=== PATIENT | female | born 1950 | race Caucasian/White ===

== ENCOUNTER 2022-11-27 08:07 | Inpatient (IN) | payer OTHER, MEDICAID ==
[~2022-11-27] VITALS: Ht 147.3 cm; Wt 149.3 kg
[~2022-11-27 08:07] MED LIST: ALPR0.254 PO; AMLO1TAB23 PO; CALC500T53 PO; CHOL20004 PO; DENO60SO SC; ESCI1TAB36 PO; GABA-1250 PO; METO-6 PO; PANT40TA2 PO; RIVA20TA PO
[2022-11-27] MEDS ORDERED: ceFAZolin 1GM/50ML 100 ML IV ONE (08:48)
[2022-11-27] MEDS ORDERED: fentaNYL CITRATE 100 MCG/2 ML VL ONE ×2 (11:23→12:10)
[2022-11-27] MEDS ORDERED: MIDAZOLAM HCL 2MG/2ML 2ml VIAL (1mg/ml) ONE (11:23)
[2022-11-27] MEDS ORDERED: HYDROmorphone HCL 2 MG/ML VL/or syr ONE (11:23)
[2022-11-27] MEDS ORDERED: DexAMETHasone SOD PHOS 10MG/1ML VIAL INJ IV ONE (11:30)
[2022-11-27] MEDS ORDERED: ONDANSETRON HCL 4 MG/2 ML VIAL IV ONE (11:30)
[2022-11-27] MEDS ORDERED: PHENYLEPHRINE HCL 10 MG/ML VL IV ONE (11:30)
[2022-11-27] MEDS ORDERED: PROPOFOL 10 MG/ML 20 ML IV ONE (12:27)
[2022-11-27] MEDS ORDERED: CYCLOBENZAPRINE HCL 10 MG TAB PO ONE ×2 (14:26→16:26)
[2022-11-27] MEDS ORDERED: HYDROmorphone HCL 2 MG/ML VL/or syr IV ONE ×6 (14:27→17:03)
[2022-11-27] MEDS ORDERED: ePHEDrine SULFATE 50 MG/ML AMP IV PRN (14:45)
[2022-11-27] MEDS ORDERED: HYDROmorphone HCL 2 MG/ML VL/or syr IV PRN (14:45)
[2022-11-27] MEDS ORDERED: LABETALOL HCL 5 MG/ML 4ML SYRINGE IV PRN (14:45)
[2022-11-27] MEDS ORDERED: ONDANSETRON HCL 4 MG/2 ML VIAL IV PRN ×2 (14:45→15:45)
[2022-11-27] MEDS ORDERED: MIDAZOLAM HCL 2MG/2ML 2ml VIAL (1mg/ml) IV PRN (14:45)
[2022-11-27] MEDS ORDERED: MORPHINE SULFATE 4 MG/ML SYR/VIAL IV PRN (14:45)
[2022-11-27] MEDS ORDERED: MORPHINE SULFATE INJ 2 MG/ml SYRG IV PRN ×2 (15:45)
[2022-11-27] MEDS ORDERED: MILK OF MAGNESIA 30ML SUSP PO PRN (15:45)
[2022-11-27] MEDS ORDERED: DOCUSATE SOD 100 MG CAP PO PRN (15:45)
[2022-11-27] MEDS ORDERED: ACETAMINOPHEN 325 MG TAB PO PRN (15:45)
[2022-11-27] MEDS ORDERED: ceFAZolin 1GM/50ML 50 ML IV SCH (15:45)
[2022-11-27] MEDS ORDERED: NITROGLYCERIN 0.4 MG SL TAB SL PRN (15:45)
[2022-11-27 15:55] VITALS: PULSE 86; RESP 17; O2SAT 98
[2022-11-27 18:25] VITALS: BP 115/51; PULSE 85; RESP 17; TEMP 97.9; O2SAT 92
[2022-11-27] MEDS: MORPHINE SULFATE 4 MG/ML SYR/VIAL IV PRN (18:42)
[2022-11-27] MEDS: D5W/SOD CHLO 0.9% 1,000 ML IV SCH ×2 (18:42→21:22)
[2022-11-27 20:00] VITALS: BP 149/86; PULSE 73; PULSE 74; PULSE 85; RESP 18; TEMP 97.9; O2SAT 98
[2022-11-27] MEDS: ceFAZolin 1GM/50ML 50 ML IV SCH (21:20)
[2022-11-27] MEDS: CYCLOBENZAPRINE HCL 10 MG TAB PO SCH (21:20)
[2022-11-27] MEDS: DOCUSATE SOD 100 MG CAP PO SCH (21:21)
[2022-11-27] MEDS: HYDROcodone-ACET 10/325MG TAB PO PRN (21:21)
[2022-11-27 22:00] VITALS: BP 110/56; PULSE 73; RESP 18; TEMP 98.6; O2SAT 98
[2022-11-28] VITALS (7 sets, daily range): BP systolic 95–159; BP diastolic 51–76; PULSE 65–88; RESP 16–18; TEMP 97.7–98.5; O2SAT 0–100
[2022-11-28] MEDS: MORPHINE SULFATE 4 MG/ML SYR/VIAL IV PRN ×5 (01:21→21:09)
[2022-11-28] MEDS: ceFAZolin 1GM/50ML 50 ML IV SCH (04:26)
[2022-11-28] MEDS: HYDROcodone-ACET 10/325MG TAB PO PRN (04:27)
[2022-11-28] MEDS ORDERED: HYDROmorphone HCL 2 MG/ML VL/or syr IV ONE (05:15)
[2022-11-28] MEDS: CYCLOBENZAPRINE HCL 10 MG TAB PO SCH ×3 (05:22→21:06)
[2022-11-28] MEDS: D5W/SOD CHLO 0.9% 1,000 ML IV SCH (05:57)
[2022-11-28] MEDS: DOCUSATE SOD 100 MG CAP PO SCH ×2 (09:50→21:06)
[2022-11-29] VITALS (9 sets, daily range): BP systolic 122–189; BP diastolic 63–95; PULSE 65–135; RESP 14–24; TEMP 98.2–99; O2SAT 95–98
[2022-11-29] MEDS: HYDROcodone-ACET 10/325MG TAB PO PRN ×4 (02:13→20:50)
[2022-11-29] MEDS: D5W/SOD CHLO 0.9% 1,000 ML IV SCH ×4 (02:39→20:22)
[2022-11-29] MEDS: MORPHINE SULFATE 4 MG/ML SYR/VIAL IV PRN ×2 (04:28→08:33)
[2022-11-29] MEDS: CYCLOBENZAPRINE HCL 10 MG TAB PO SCH ×3 (05:46→22:00)
[2022-11-29] MEDS: DOCUSATE SOD 100 MG CAP PO SCH ×2 (08:27→22:00)
[2022-11-29 12:37] LABS: Hepatitis C Antibody Negative (Negative)
[2022-11-29] MEDS ORDERED: AMIODARONE BOLUS KIT 100 ML IV ONE (14:00)
[2022-11-29] MEDS ORDERED: AMIODARONE 450mg/250ml AE 250 ML IV SCH ×2 (14:15→20:15)
[2022-11-29] MEDS ORDERED: amLODIPine BESYLATE 5 MG TAB PO ONE (15:00)
[2022-11-29] MEDS ORDERED: METOPROLOL SUCCINATE XL 50 MG TAB PO ONE (15:00)
[2022-11-29] MEDS ORDERED: ALPRAZolam 0.25 MG TAB PO ONE (15:00)
[2022-11-29] MEDS ORDERED: dilTIAZem 25 MG/5 ML VIAL IV ONE (16:30)
[2022-11-29] MEDS ORDERED: hydrALAZINE HCL 20 MG/ML VL IV PRN (16:45)
[2022-11-29] MEDS ORDERED: ALPRAZolam 0.25 MG TAB PO PRN (17:15)
[2022-11-29 17:45] LABS: Basophils # (auto) 0 10 ^3/uL (0-0.2); Basophils % (auto) 0.4 % (0.0-2.0); Eosinophils # (auto) 0 10 ^3/uL (0-0.8); Hemoglobin 10.7 g/dL (12.2-16.2); Lymphocytes % (auto) 8.8 % (10.0-50.0); Neutrophils # (auto) 7.5 10 ^3/uL (1.6-8.6)
[2022-11-29 17:47] LABS: Eosinophils % (auto) 0.1 % (0.0-7.0); Hematocrit 30.7 % (36.0-46.0); Lymphocytes # (auto) 0.8 10 ^3/uL (0.4-5.4); Mean Corpuscular Hemoglobin 36.1 pg (28.0-32.0); Mean Corpuscular Hgb Conc. 34.7 g/dL (32.0-36.0); Mean Corpuscular Volume 104.1 fL (80.0-100.0); Monocytes # (auto) 1.1 10 ^3/uL (0-1.3); Monocytes % (auto) 11.9 % (0.0-12.0); Neutrophils % (auto) 78.8 % (37.0-80.0); Red Blood Cells 2.95 10^6/uL (4.0-5.20); Red Cell Distribution Width 14.6 % (11.8-14.3); White Blood Cell 9.6 10^3/uL (4.4-10.8)
[2022-11-29] MEDS: RIVAROXABAN 20 MG TAB PO SCH (18:00)
[2022-11-29 18:07] LABS: Albumin 2.8 g/dL (3.4-5.0); BUN/Creatinine Ratio 13.6 (10.0-20.0); Calcium 8.2 mg/dL (8.5-10.1); Magnesium 1.5 mg/dL (1.6-2.6); Potassium 3.6 mmol/L (3.5-5.1)
[2022-11-29 18:11] LABS: Bilirubin, Total 0.5 mg/dL (0.2-1.0); Total Protein 5.5 g/dL (6.4-8.2)
[2022-11-30] VITALS (8 sets, daily range): BP systolic 102–139; BP diastolic 63–71; PULSE 73–85; RESP 14–18; TEMP 97.9–98.8; O2SAT 88–99
[2022-11-30] MEDS: MORPHINE SULFATE 4 MG/ML SYR/VIAL IV PRN ×4 (00:03→09:56)
[2022-11-30] MEDS: CYCLOBENZAPRINE HCL 10 MG TAB PO SCH ×3 (06:26→22:03)
[2022-11-30] MEDS ORDERED: MAGNESIUM SULFATE 1GM/100ML 100 ML IV ONE (06:45)
[2022-11-30] MEDS ORDERED: POTASSIUM CHL 20 Meq TABLET PO ONE (06:45)
[2022-11-30] MEDS: DOCUSATE SOD 100 MG CAP PO SCH ×2 (09:53→22:04)
[2022-11-30] MEDS: amLODIPine BESYLATE 5 MG TAB PO SCH (09:54)
[2022-11-30] MEDS: AMIODARONE HCL 200 MG TAB PO SCH ×2 (09:54→22:04)
[2022-11-30] MEDS: METOPROLOL SUCCINATE XL 50 MG TAB PO SCH (09:55)
[2022-11-30] MEDS: D5W/SOD CHLO 0.9% 1,000 ML IV SCH ×2 (14:45→23:45)
[2022-11-30] MEDS: LACTULOSE 20Gm/30ML SOLN PO SCH ×2 (14:46→22:03)
[2022-11-30] MEDS: HYDROcodone-ACET 10/325MG TAB PO PRN ×2 (14:58→22:04)
[2022-11-30] MEDS: RIVAROXABAN 20 MG TAB PO SCH (18:00)
[2022-12-01] VITALS (7 sets, daily range): BP systolic 120–154; BP diastolic 64–83; PULSE 77–91; RESP 14–18; TEMP 98.2–98.7; O2SAT 90–94
[2022-12-01] MEDS: MORPHINE SULFATE 4 MG/ML SYR/VIAL IV PRN ×4 (02:31→21:36)
[2022-12-01] MEDS: CYCLOBENZAPRINE HCL 10 MG TAB PO SCH ×3 (06:22→21:35)
[2022-12-01] MEDS: LACTULOSE 20Gm/30ML SOLN PO SCH ×3 (06:22→21:35)
[2022-12-01 08:27] LABS: BUN/Creatinine Ratio 14.9 (10.0-20.0); Calcium 7.9 mg/dL (8.5-10.1); Magnesium 1.9 mg/dL (1.6-2.6)
[2022-12-01 08:29] LABS: Potassium 3.9 mmol/L (3.5-5.1)
[2022-12-01] MEDS: D5W/SOD CHLO 0.9% 1,000 ML IV SCH ×2 (09:40→19:45)
[2022-12-01] MEDS: DOCUSATE SOD 100 MG CAP PO SCH ×2 (09:41→21:35)
[2022-12-01] MEDS: AMIODARONE HCL 200 MG TAB PO SCH ×2 (09:41→21:35)
[2022-12-01] MEDS: amLODIPine BESYLATE 5 MG TAB PO SCH (09:41)
[2022-12-01] MEDS: METOPROLOL SUCCINATE XL 50 MG TAB PO SCH (09:42)
[2022-12-01] MEDS: RIVAROXABAN 20 MG TAB PO SCH (18:00)
[2022-12-01] MEDS ORDERED: AML5T PO (18:44)
[2022-12-01] MEDS ORDERED: AMIO200T33 PO (18:44)
[2022-12-02] MEDS: HYDROcodone-ACET 10/325MG TAB PO PRN (00:40)
[2022-12-02 05:00] VITALS: BP 146/68; PULSE 78; RESP 20; TEMP 98.1; O2SAT 96
[2022-12-02] MEDS: D5W/SOD CHLO 0.9% 1,000 ML IV SCH (05:45)
[2022-12-02] MEDS: LACTULOSE 20Gm/30ML SOLN PO SCH (06:00)
[2022-12-02] MEDS: CYCLOBENZAPRINE HCL 10 MG TAB PO SCH (06:22)
[2022-12-02 08:00] VITALS: PULSE 77
[2022-12-02] MEDS: DOCUSATE SOD 100 MG CAP PO SCH (10:00)
[2022-12-02] MEDS: AMIODARONE HCL 200 MG TAB PO SCH (10:23)
[2022-12-02] MEDS: METOPROLOL SUCCINATE XL 50 MG TAB PO SCH (10:23)
[2022-12-02] MEDS: amLODIPine BESYLATE 5 MG TAB PO SCH (10:24)
== END 2022-12-02 13:30 | disposition home health service (06) | DRG 460 ==
LOC: SUR 08:07 → OVERFLOW 18:07 → WEST WING 18:36 → TELE-WESTW 22:24
PROVIDERS: ADMIT Internal Medicine; ATTEND Internal Medicine
PROC: 01NB0ZZ Release Lumbar Nerve, Open Approach (ICD-10-PCS; 2022-11-27)
PROC: 00NY0ZZ Release Lumbar Spinal Cord, Open Approach (ICD-10-PCS; 2022-11-27)
PROC: 4A11X4G Monitoring of Peripheral Nervous Electrical Activity, Intraoperative, External Approach (ICD-10-PCS; 2022-11-27)
PROC: 0SG10AJ Fusion of 2 or more Lumbar Vertebral Joints with Interbody Fusion Device, Posterior Approach, Anterior Column, Open Approach (ICD-10-PCS; principal; 2022-11-27 11:51)
DX: M48.062 Spinal stenosis, lumbar region with neurogenic claudication (principal); I48.0 Paroxysmal atrial fibrillation; I16.0 Hypertensive urgency; I10 Essential (primary) hypertension; F41.9 Anxiety disorder, unspecified; G62.9 Polyneuropathy, unspecified; E66.9 Obesity, unspecified; Z79.01 Long term (current) use of anticoagulants; Z82.49 Family history of ischemic heart disease and other diseases of the circulatory system; Z83.3 Family history of diabetes mellitus; Z68.28 Body mass index [BMI] 28.0-28.9, adult
CPT/HCPCS: 36415; 71045; 72100; 76000; 80048; 80053; 80061; 82962; 83036; 83735; 83880; 84443; 84484; 85025; 86803; 86850; 86900; 86901; 87340; 97110; 97116; 97163; 97530; A4565; G0378; J0690; J1100; J2250; J2405; J2704; J7042

== ENCOUNTER 2022-12-04 10:03 | Emergency (ER) | payer OTHER, MEDICAID ==
[~2022-12-04] VITALS: Ht 167.6 cm; Wt 61.0 kg
[~2022-12-04 10:03] MED LIST changes: +AMIO200T33 PO; +AML5T PO
[2022-12-04] MEDS ORDERED: HYDROcodone-ACET 5/325MG TAB PO ONE (11:00)
[2022-12-04 11:23] VITALS: PULSE 100; RESP 20; O2SAT 100
[2022-12-04] MEDS ORDERED: ONDANSETRON HCL 4 MG/2 ML VIAL IV ONE (11:45)
[2022-12-04] MEDS ORDERED: MORPHINE SULFATE INJ 2 MG/ml SYRG IV ONE (11:45)
[2022-12-04 11:52] LABS: Basophils # (auto) 0 10 ^3/uL (0-0.2); Basophils % (auto) 0.2 % (0.0-2.0); Eosinophils # (auto) 0 10 ^3/uL (0-0.8); Eosinophils % (auto) 0.1 % (0.0-7.0); Hematocrit 29.3 % (36.0-46.0); Hemoglobin 10.1 g/dL (12.2-16.2); Lymphocytes % (auto) 7.5 % (10.0-50.0); Mean Corpuscular Hemoglobin 35.2 pg (28.0-32.0); Mean Corpuscular Hgb Conc. 34.4 g/dL (32.0-36.0); Mean Corpuscular Volume 102.3 fL (80.0-100.0); Monocytes # (auto) 1.5 10 ^3/uL (0-1.3); Monocytes % (auto) 11.2 % (0.0-12.0); Neutrophils # (auto) 10.6 10 ^3/uL (1.6-8.6); Nucleated Red Blood Cells % 0.1 %; Red Blood Cells 2.87 10^6/uL (4.0-5.20); Red Cell Distribution Width 14.4 % (11.8-14.3); White Blood Cell 13.1 10^3/uL (4.4-10.8)
[2022-12-04 12:12] LABS: Potassium 3.1 mmol/L (3.5-5.1)
[2022-12-04 12:14] LABS: INR 1.13 (0.9-1.15)
[2022-12-04 12:23] LABS: Albumin 2.5 g/dL (3.4-5.0); BUN/Creatinine Ratio 13.8 (10.0-20.0); Bilirubin, Total 0.8 mg/dL (0.2-1.0); Total Protein 6.4 g/dL (6.4-8.2)
[2022-12-04] MEDS ORDERED: IOHEXOL 300 MG/ML 100ML BOTTLE IJ ONE (13:42)
[2022-12-04] MEDS ORDERED: CYCLOBENZAPRINE HCL 10 MG TAB PO ONE (15:00)
[2022-12-04 16:35] VITALS: BP 124/67; PULSE 93; RESP 18; TEMP 98.5; O2SAT 98
== END 2022-12-04 16:42 | disposition home or self-care (01) ==
LOC: ER 10:03 → EDBD 10:03 → ER 16:42
DX: M54.50 Low back pain, unspecified (principal); G89.18 Other acute postprocedural pain; R53.1 Weakness; Z79.01 Long term (current) use of anticoagulants
CPT/HCPCS: 36415; 72133; 80053; 83605; 85025; 85610; 87040; 93005; 96374; 96375; 99285; J2270; J2405; Q9967

== ENCOUNTER 2022-12-07 08:57 | Emergency (ER) | payer OTHER, MEDICAID ==
[~2022-12-07] VITALS: Ht 147.3 cm; Wt 59.0 kg
[2022-12-07 09:49] VITALS: BP 134/64; PULSE 83; RESP 18; TEMP 98.7; O2SAT 96
[2022-12-07] MEDS ORDERED: CEPH500C PO (10:18)
== END 2022-12-07 10:34 | disposition home or self-care (01) ==
LOC: ER 08:57 → EDBD 08:57 → ER 10:33
DX: M96.830 Postprocedural hemorrhage of a musculoskeletal structure following a musculoskeletal system procedure (principal); I48.91 Unspecified atrial fibrillation; I10 Essential (primary) hypertension; Z48.01 Encounter for change or removal of surgical wound dressing; Z98.890 Other specified postprocedural states; Z79.899 Other long term (current) drug therapy

== ENCOUNTER 2022-12-16 21:55 | Emergency (ER) | payer OTHER, MEDICAID ==
[~2022-12-16] VITALS: Ht 165.1 cm; Wt 60.0 kg
[~2022-12-16 21:55] MED LIST changes: +CEPH500C PO
[2022-12-16] MEDS ORDERED: SODIUM CHLORIDE 0.9% 1,000 ML IVB ONE (23:30)
[2022-12-16] MEDS ORDERED: LORazepam 2MG/ML-1ML VIAL IV ONE (23:30)
[2022-12-16] MEDS ORDERED: SODIUM CHLORIDE 0.9% 1,800 ML IV ONE (23:30)
[2022-12-16 23:55] VITALS: PULSE 78; RESP 18; O2SAT 96
[2022-12-17 00:21] LABS: Albumin 2.4 g/dL (3.4-5.0); Anion Gap 9 (5-15); BUN/Creatinine Ratio 13.6 (10.0-20.0); Blood Urea Nitrogen 11 mg/dL (7-18); Calcium 8.2 mg/dL (8.5-10.1); Carbon Dioxide 20 mmol/L (21-32); Chloride 108 mmol/L (98-107); GFR African American 89 mL/min; GFR Non-African American 73 mL/min; Glucose 101 mg/dL (74-106); Magnesium 1.8 mg/dL (1.6-2.6); Potassium 3.5 mmol/L (3.5-5.1); Sodium 137 mmol/L (136-145)
[2022-12-17 00:29] LABS: Alanine Aminotransferase 18 U/L (13-56); Alkaline Phosphatase 73 U/L (45-117); Aspartate Aminotransferase 26 U/L (15-37); Bilirubin, Total 0.4 mg/dL (0.2-1.0); Total Protein 6.7 g/dL (6.4-8.2)
[2022-12-17 00:35] LABS: Blood Alcohol < 3.0 mg/dL (<10)
[2022-12-17] MEDS ORDERED: PANTOPRAZOLE 40 MG/10 ML VIAL INJ IV ONE (00:45)
[2022-12-17] MEDS ORDERED: HALOPERIDOL LACTATE 5 MG/ML INJ VIAL IM ONE (00:45)
[2022-12-17] MEDS ORDERED: KETOROLAC TROMETH 30 MG/ML 1ML VIAL IV ONE (00:45)
[2022-12-17 01:06] LABS: Hemoglobin 9.5 g/dL (12.2-16.2); Lymphocytes # (auto) 1.8 10 ^3/uL (0.4-5.4); Red Cell Distribution Width 14.9 % (11.8-14.3); White Blood Cell 9.7 10^3/uL (4.4-10.8)
[2022-12-17 01:07] LABS: Basophils # (auto) 0.1 10 ^3/uL (0-0.2); Basophils % (auto) 0.7 % (0.0-2.0); Eosinophils # (auto) 0 10 ^3/uL (0-0.8); Eosinophils % (auto) 0.4 % (0.0-7.0); Lymphocytes % (auto) 18.8 % (10.0-50.0); Mean Corpuscular Hgb Conc. 33.9 g/dL (32.0-36.0); Mean Corpuscular Volume 100.3 fL (80.0-100.0); Monocytes # (auto) 1.2 10 ^3/uL (0-1.3); Monocytes % (auto) 11.9 % (0.0-12.0); Neutrophils # (auto) 6.6 10 ^3/uL (1.6-8.6); Neutrophils % (auto) 68.2 % (37.0-80.0); Red Blood Cells 2.79 10^6/uL (4.0-5.20)
[2022-12-17 01:42] LABS: INR 1.19 (0.9-1.15); Partial Thromboplastin Time 30.7 SEC (24.5-34.5); Prothrombin Time 12.4 sec (9.3-11.8)
[2022-12-17 01:59] LABS: Large Platelets FEW; Macrocytosis Slight; Platelet Estimate Markedly Increased
[2022-12-17 04:21] LABS: Urine Bacteria NONE SEEN /hpf (None Seen); Urine Blood Negative /uL (Negative); Urine Clarity Clear (Clear); Urine Color Yellow (Yellow); Urine Protein, UAD Negative (Negative); Urine Specific Gravity 1.012 (1.001-1.035); Urine Urobilinogen Normal (Negative); Urine WBC <1 /hpf (0 - 5); Urine pH 6.5 (5.0-8.0)
[2022-12-17 04:25] LABS: Alcohol, Urine < 3.0 mg/dL (0-10); Amphetamine Screen, Urine NEGATIVE (NEGATIVE); Barbiturate Scree,Urine NEGATIVE (NEGATIVE); Benzodiazephine Screen, Urine NEGATIVE (NEGATIVE); Cannabinoid Screen, Urine NEGATIVE (NEGATIVE); Cocaine Screen, Urine NEGATIVE (NEGATIVE); Opiate Scree,Urine NEGATIVE (NEGATIVE); Phencyclidine Screen, Urine NEGATIVE (NEGATIVE)
[2022-12-17 05:00] VITALS: BP 137/64; RESP 20; TEMP 98.7; O2SAT 100
[2022-12-17 08:00] VITALS: PULSE 72
[2022-12-17] MEDS ORDERED: LORazepam 2MG/ML-1ML VIAL IV ONE (09:00)
[2022-12-17 10:51] LABS: Base Excess -3.2 mmol/L (-2.0-2.0)
[2022-12-17] MEDS ORDERED: HYDR-4902 PO (13:21)
[2022-12-17] MEDS ORDERED: HYDROcodone-ACET 10/325MG TAB PO ONE (15:00)
== END 2022-12-17 16:37 | disposition home or self-care (01) ==
LOC: ER 21:55 → EDBD 21:55 → ER 12-17 16:37
DX: G93.41 Metabolic encephalopathy (principal); I10 Essential (primary) hypertension; R41.82 Altered mental status, unspecified; R06.02 Shortness of breath
CPT/HCPCS: 36415; 36600; 70450; 71045; 74176; 80053; 80307; 80320; 81001; 82805; 83605; 83735; 83880; 84484; 85025; 85610; 85730; 86850; 86900; 86901; 87040; 87086; 93005; 96361; 96374; 96375; 96376; 99285; C9113; J1885; J2060; J7030

== ENCOUNTER 2023-04-16 06:16 | Inpatient (IN) | payer OTHER, MEDICAID ==
[~2023-04-16] VITALS: Ht 147.3 cm; Wt 68.1 kg
[~2023-04-16 06:16] MED LIST changes: -AMIO200T33 PO; -AML5T PO; +BENA-26 PO; +CALC-473 PO; -CALC500T53 PO; -CEPH500C PO; -DENO60SO SC; -ESCI1TAB36 PO; +FER325T PO; -GABA-1250 PO; +IBUP-1455 PO
[2023-04-16] MEDS ORDERED: LIDOCAINE W/ EPINEPHRINE 1% 20ML VIAL ONE (06:33)
[2023-04-16] MEDS ORDERED: TRANEXAMIC ACID 20 ML ONE (06:33)
[2023-04-16] MEDS ORDERED: LIDOCAINE 1% (LOCAL ANESTH.) PF 5ml SDV ONE (06:47)
[2023-04-16] MEDS ORDERED: fentaNYL CITRATE 100 MCG/2 ML VL ONE ×2 (07:08→07:22)
[2023-04-16] MEDS ORDERED: LIDOCAINE 2% JELLY 11ml (GLYDO) ONE (07:14)
[2023-04-16] MEDS ORDERED: HYDROmorphone HCL 2 MG/ML VL/or syr ONE ×2 (07:18→11:26)
[2023-04-16] MEDS ORDERED: ETOMIDATE (2MG/ML) 20ML VIAL IV ONE ×2 (07:18→07:22)
[2023-04-16] MEDS ORDERED: ceFAZolin 2 GM/D5W100ml 100 ML IV ONE (09:04)
[2023-04-16] MEDS ORDERED: NITROGLYCERIN 0.4 MG SL TAB SL PRN (10:30)
[2023-04-16] MEDS ORDERED: MORPHINE SULFATE INJ 2 MG/ml SYRG IV PRN (10:30)
[2023-04-16] MEDS ORDERED: ONDANSETRON HCL 4 MG/2 ML VIAL IV PRN ×2 (10:30→11:30)
[2023-04-16] MEDS ORDERED: SUGAMMADEX 200mg/2ml Vial (100MG/ML) IV ONE (10:37)
[2023-04-16 11:04] VITALS: PULSE 82; RESP 20; O2SAT 92
[2023-04-16] MEDS ORDERED: MORPHINE SULFATE 4 MG/ML SYR/VIAL IV PRN (11:30)
[2023-04-16] MEDS: HYDROmorphone HCL 2 MG/ML VL/or syr IV PRN ×2 (11:30→11:50)
[2023-04-16] MEDS ORDERED: MIDAZOLAM HCL 2MG/2ML 2ml VIAL (1mg/ml) IV PRN (11:30)
[2023-04-16] MEDS ORDERED: ePHEDrine SULFATE 50 MG/ML AMP IV PRN (11:30)
[2023-04-16] MEDS ORDERED: LABETALOL HCL 5 MG/ML 4ML SYRINGE IV PRN (11:30)
[2023-04-16] MEDS ORDERED: CYCLOBENZAPRINE HCL 10 MG TAB PO SCH ×2 (11:46→14:00)
[2023-04-16] MEDS: D5W/SOD CHLO 0.9% 1,000 ML IV SCH ×2 (12:10→20:34)
[2023-04-16] MEDS: HYDROcodone-ACET 10/325MG TAB PO PRN ×2 (14:28→20:35)
[2023-04-16 16:05] VITALS: PULSE 68
[2023-04-16 16:55] VITALS: BP 131/64; PULSE 62; RESP 19; TEMP 98.1; O2SAT 100
[2023-04-16 17:00] VITALS: BP 131/64; PULSE 63; RESP 19; TEMP 98.1; O2SAT 100
[2023-04-16] MEDS: ceFAZolin 1GM/50ML 50 ML IV SCH (17:30)
[2023-04-16] MEDS: CYCLOBENZAPRINE HCL 10 MG TAB PO SCH (19:51)
[2023-04-16 20:00] VITALS: BP 122/70; PULSE 75; PULSE 77; RESP 18; TEMP 98.2; O2SAT 97
[2023-04-16] MEDS: DOCUSATE SOD 100 MG CAP PO SCH (21:48)
[2023-04-16 22:43] VITALS: BP 122/70; PULSE 77; RESP 19; TEMP 98.2; O2SAT 97
[2023-04-17] VITALS (7 sets, daily range): BP systolic 115–158; BP diastolic 3–84; PULSE 60–94; RESP 16–19; TEMP 97.5–98.9; O2SAT 94–100
[2023-04-17] MEDS: ceFAZolin 1GM/50ML 50 ML IV SCH (01:27)
[2023-04-17] MEDS: CYCLOBENZAPRINE HCL 10 MG TAB PO SCH ×3 (04:05→20:13)
[2023-04-17] MEDS: HYDROcodone-ACET 10/325MG TAB PO PRN ×3 (04:06→16:58)
[2023-04-17] MEDS: D5W/SOD CHLO 0.9% 1,000 ML IV SCH ×3 (06:31→09:10)
[2023-04-17] MEDS: DOCUSATE SOD 100 MG CAP PO SCH ×2 (09:10→22:11)
[2023-04-17 12:19] LABS: INR 1.06 (0.9-1.15); Partial Thromboplastin Time 31.1 SEC (24.5-34.5); Prothrombin Time 11.1 sec (9.3-11.8)
[2023-04-17 12:33] LABS: Basophils # (auto) 0 10 ^3/uL (0-0.2); Eosinophils # (auto) 0 10 ^3/uL (0-0.8); Monocytes # (auto) 0.9 10 ^3/uL (0-1.3); White Blood Cell 14.1 10^3/uL (4.4-10.8)
[2023-04-17 12:35] LABS: Basophils % (auto) 0.2 % (0.0-2.0); Eosinophils % (auto) 0.1 % (0.0-7.0); Hematocrit 23.9 % (36.0-46.0); Hemoglobin 7.4 g/dL (12.2-16.2); Lymphocytes # (auto) 1.3 10 ^3/uL (0.4-5.4); Mean Corpuscular Hemoglobin 28.2 pg (28.0-32.0); Mean Corpuscular Hgb Conc. 30.9 g/dL (32.0-36.0); Mean Corpuscular Volume 91.4 fL (80.0-100.0); Monocytes % (auto) 6.2 % (0.0-12.0); Neutrophils % (auto) 84.5 % (37.0-80.0); Red Blood Cells 2.62 10^6/uL (4.0-5.20); Red Cell Distribution Width 17.2 % (11.8-14.3)
[2023-04-17 12:50] LABS: Anion Gap 7 (5-15); Carbon Dioxide 22 mmol/L (20-30); Chloride 108 mmol/L (98-107); Potassium 3.6 mmol/L (3.5-5.1); Sodium 137 mmol/L (136-145)
[2023-04-17 12:51] LABS: Calcium 8.2 mg/dL (8.7-10.4)
[2023-04-17 12:56] LABS: BUN/Creatinine Ratio 19.7 (10.0-20.0); Blood Urea Nitrogen 14 mg/dL (9-23); Glucose 100 mg/dL (74-106); Magnesium 1.6 mg/dL (1.6-2.6)
[2023-04-17] MEDS: MORPHINE SULFATE INJ 2 MG/ml SYRG IV PRN ×2 (13:09→18:17)
[2023-04-18] VITALS (9 sets, daily range): BP systolic 118–192; BP diastolic 63–92; PULSE 81–127; RESP 18–21; TEMP 98.8–99.9; O2SAT 94–100
[2023-04-18] MEDS: MORPHINE SULFATE INJ 2 MG/ml SYRG IV PRN (01:24)
[2023-04-18] MEDS: CYCLOBENZAPRINE HCL 10 MG TAB PO SCH ×3 (04:11→20:23)
[2023-04-18] MEDS ORDERED: LORazepam 2MG/ML-1ML VIAL IV ONE (04:45)
[2023-04-18] MEDS: ACETAMINOPHEN 325 MG TAB PO PRN ×2 (06:32→20:23)
[2023-04-18] MEDS ORDERED: ALPRAZolam 0.25 MG TAB PO PRN ×2 (10:00→10:45)
[2023-04-18] MEDS: CALCIUM CARBONATE PO SCH (10:00)
[2023-04-18] MEDS: DOCUSATE SOD 100 MG CAP PO SCH ×2 (10:00→22:40)
[2023-04-18] MEDS: BENAZEPRIL HYDROCHLOROTHIAZIDE PO SCH (10:00)
[2023-04-18] MEDS: CHOLECALCIFEROL PO SCH (10:00)
[2023-04-18] MEDS ORDERED: VANCOMYCIN PER PHARMACY 0 MG IV SCH (10:15)
[2023-04-18] MEDS ORDERED: VANCOMYCIN 750mg/250ml 250 ML IV ONE (11:45)
[2023-04-18] MEDS ORDERED: PIPERACILLIN-TAZOB 3.375GM 100 ML IV SCH ×2 (12:00→14:00)
[2023-04-18] MEDS: PANTOPRAZOLE 40 MG TAB PO SCH (12:09)
[2023-04-18] MEDS: METOPROLOL SUCCINATE XL 50 MG TAB PO SCH (12:09)
[2023-04-18] MEDS: FERROUS SULFATE 325mg EC TAB PO SCH ×2 (12:09→22:39)
[2023-04-18] MEDS ORDERED: DIGOXIN (250MCG/ML) 2 ML AMPULE IV ONE (13:15)
[2023-04-18] MEDS: MEROPENEM 2 GM in SODIUM CHL 0.9% 250 ML IV SCH (22:39)
[2023-04-18 22:57] LABS: Basophils # (auto) 0 10 ^3/uL (0-0.2); Basophils % (auto) 0.3 % (0.0-2.0); Eosinophils # (auto) 0 10 ^3/uL (0-0.8); Eosinophils % (auto) 0.1 % (0.0-7.0); Hematocrit 26.5 % (36.0-46.0); Hemoglobin 8.5 g/dL (12.2-16.2); Lymphocytes # (auto) 0.9 10 ^3/uL (0.4-5.4); Lymphocytes % (auto) 6.4 % (10.0-50.0); Mean Corpuscular Hemoglobin 28.5 pg (28.0-32.0); Mean Corpuscular Hgb Conc. 32.1 g/dL (32.0-36.0); Mean Corpuscular Volume 88.9 fL (80.0-100.0); Monocytes # (auto) 0.5 10 ^3/uL (0-1.3); Monocytes % (auto) 3.7 % (0.0-12.0); Neutrophils # (auto) 12.8 10 ^3/uL (1.6-8.6); Neutrophils % (auto) 89.5 % (37.0-80.0); Nucleated Red Blood Cells % 0.1 %; Red Blood Cells 2.98 10^6/uL (4.0-5.20); Red Cell Distribution Width 16.7 % (11.8-14.3); White Blood Cell 14.3 10^3/uL (4.4-10.8)
[2023-04-19] VITALS (8 sets, daily range): BP systolic 125–162; BP diastolic 59–82; PULSE 71–106; RESP 16–20; TEMP 98–100.6; O2SAT 92–95
[2023-04-19] MEDS: CYCLOBENZAPRINE HCL 10 MG TAB PO SCH ×3 (04:02→20:05)
[2023-04-19] MEDS ORDERED: VANCOMYCIN 750mg/250ml 250 ML IV SCH (06:00)
[2023-04-19] MEDS: HYDROcodone-ACET 10/325MG TAB PO PRN (08:18)
[2023-04-19] MEDS: PANTOPRAZOLE 40 MG TAB PO SCH (09:08)
[2023-04-19] MEDS: LOSARTAN POTASSIUM 50 MG TAB PO SCH (09:09)
[2023-04-19] MEDS: METOPROLOL SUCCINATE XL 50 MG TAB PO SCH (09:09)
[2023-04-19] MEDS: FERROUS SULFATE 325mg EC TAB PO SCH ×2 (09:10→22:01)
[2023-04-19] MEDS: DOCUSATE SOD 100 MG CAP PO SCH ×2 (09:10→22:00)
[2023-04-19] MEDS: CHOLECALCIFEROL PO SCH (09:11)
[2023-04-19] MEDS: CALCIUM CARBONATE PO SCH (09:11)
[2023-04-19] MEDS: BENAZEPRIL HYDROCHLOROTHIAZIDE PO SCH (09:11)
[2023-04-19] MEDS: MEROPENEM 2 GM in SODIUM CHL 0.9% 250 ML IV SCH ×2 (09:12→22:01)
[2023-04-19] MEDS ORDERED: DIGOXIN (250MCG/ML) 2 ML AMPULE IV SCH (10:00)
[2023-04-19] MEDS ORDERED: DIGOXIN 0.125 MG TAB PO SCH (10:00)
[2023-04-19] MEDS ORDERED: amLODIPine BESYLATE 5 MG TAB PO SCH (10:00)
[2023-04-19] MEDS: ACETAMINOPHEN 325 MG TAB PO PRN (11:03)
[2023-04-19 15:26] LABS: Erythrocyte Sedimentation Rate 58 mm/hr (0-20)
[2023-04-19] MEDS: OXYCODONE W/ ACETAMINOPHEN 5/325MG TABLET PO PRN (18:04)
[2023-04-20] VITALS (7 sets, daily range): BP systolic 111–163; BP diastolic 52–91; PULSE 69–132; RESP 17–20; TEMP 98.4–101; O2SAT 92–97
[2023-04-20] MEDS: OXYCODONE W/ ACETAMINOPHEN 5/325MG TABLET PO PRN ×4 (00:43→20:14)
[2023-04-20] MEDS: CYCLOBENZAPRINE HCL 10 MG TAB PO SCH ×3 (04:06→20:14)
[2023-04-20] MEDS ORDERED: dilTIAZem 25 MG/5 ML VIAL IV ONE ×2 (09:24→09:30)
[2023-04-20] MEDS ORDERED: MAGNESIUM SULFATE 1GM/100ML 100 ML IV ONE (09:27)
[2023-04-20] MEDS ORDERED: MORPHINE SULFATE INJ 2 MG/ml SYRG ONE (09:34)
[2023-04-20] MEDS ORDERED: AMIODARONE 450mg/250ml AE 250 ML IV ONE (09:41)
[2023-04-20] MEDS ORDERED: METOPROLOL TARTRATE 1MG/1ML-5ML VIAL IV ONE ×3 (09:44→10:00)
[2023-04-20] MEDS ORDERED: AMIODARONE BOLUS KIT 100 ML IV ONE (09:45)
[2023-04-20] MEDS ORDERED: AMIODARONE 450mg/250ml AE 250 ML IV SCH ×2 (09:45→15:45)
[2023-04-20] MEDS: LOSARTAN POTASSIUM 50 MG TAB PO SCH (10:00)
[2023-04-20] MEDS: METOPROLOL SUCCINATE XL 50 MG TAB PO SCH (10:00)
[2023-04-20] MEDS ORDERED: IOHEXOL 300 MG/ML 100ML BOTTLE IJ ONE (10:18)
[2023-04-20 10:30] LABS: Basophils # (auto) 0 10 ^3/uL (0-0.2); Basophils % (auto) 0.2 % (0.0-2.0); Eosinophils # (auto) 0.1 10 ^3/uL (0-0.8); Eosinophils % (auto) 1.9 % (0.0-7.0); Hematocrit 32.7 % (36.0-46.0); Hemoglobin 10.7 g/dL (12.2-16.2); Lymphocytes # (auto) 0.9 10 ^3/uL (0.4-5.4); Lymphocytes % (auto) 12.9 % (10.0-50.0); Mean Corpuscular Hemoglobin 29.3 pg (28.0-32.0); Mean Corpuscular Hgb Conc. 32.6 g/dL (32.0-36.0); Monocytes # (auto) 0.1 10 ^3/uL (0-1.3); Monocytes % (auto) 0.9 % (0.0-12.0); Neutrophils # (auto) 5.6 10 ^3/uL (1.6-8.6); Neutrophils % (auto) 84.1 % (37.0-80.0); Nucleated Red Blood Cells % 0.3 %; Red Blood Cells 3.64 10^6/uL (4.0-5.20); Red Cell Distribution Width 16.2 % (11.8-14.3); White Blood Cell 6.7 10^3/uL (4.4-10.8)
[2023-04-20] MEDS ORDERED: IOHEXOL 350 MG/ML 100ML IJ ONE (10:36)
[2023-04-20 11:05] LABS: Albumin 3.4 g/dL (3.2-4.8); Alkaline Phosphatase 99 U/L (46-116); Anion Gap 14 (5-15); Aspartate Aminotransferase 17 U/L (13-40); BUN/Creatinine Ratio 21.8 (10.0-20.0); Bilirubin, Total 0.4 mg/dL (0.2-1.0); Blood Urea Nitrogen 17 mg/dL (9-23); Calcium 8.8 mg/dL (8.5-10.1); Carbon Dioxide 20 mmol/L (20-30); Chloride 99 mmol/L (98-107); Glucose 156 mg/dL (74-106); Potassium 3.9 mmol/L (3.5-5.1); Sodium 133 mmol/L (136-145); Total Protein 6.5 g/dL (5.7-8.2)
[2023-04-20 11:13] LABS: Alanine Aminotransferase < 9 U/L (7-40)
[2023-04-20] MEDS ORDERED: MEROPENEM 2 GM in SODIUM CHL 0.9% 250 ML IV SCH (11:14)
[2023-04-20 11:37] LABS: Lactic Acid w/Reflex 4.6 mmol/L (0.4-2.0)
[2023-04-20 11:39] LABS: Magnesium 1.7 mg/dL (1.6-2.6)
[2023-04-20] MEDS ORDERED: SODIUM CHLORIDE 0.9% 500 ML IV ONE (11:45)
[2023-04-20] MEDS ORDERED: LIDOCAINE 1% (LOCAL ANESTH.) PF 5ml SDV ID ONE (12:30)
[2023-04-20] MEDS: PANTOPRAZOLE 40 MG TAB PO SCH (12:30)
[2023-04-20] MEDS: FERROUS SULFATE 325mg EC TAB PO SCH ×2 (12:31→22:12)
[2023-04-20] MEDS: DOCUSATE SOD 100 MG CAP PO SCH ×3 (12:31→22:12)
[2023-04-20] MEDS: SODIUM CHLORIDE 0.9% 1,000 ML IV SCH ×2 (16:56→21:50)
[2023-04-20] MEDS: AMIODARONE HCL 200 MG TAB PO SCH (20:13)
[2023-04-20] MEDS: MEROPENEM 2 GM in SODIUM CHL 0.9% 250 ML IV SCH (22:12)
[2023-04-20] MEDS: SODIUM CHLOR 0.9% PF (SALINE LOCK) 10ML VIAL/SYR IV SCH (22:12)
[2023-04-21] VITALS (11 sets, daily range): BP systolic 127–161; BP diastolic 69–87; PULSE 67–81; RESP 16–20; TEMP 97.5–99.1; O2SAT 93–97
[2023-04-21] MEDS: OXYCODONE W/ ACETAMINOPHEN 5/325MG TABLET PO PRN ×3 (02:25→20:34)
[2023-04-21] MEDS: SODIUM CHLORIDE 0.9% 1,000 ML IV SCH ×2 (02:26→20:29)
[2023-04-21] MEDS: CYCLOBENZAPRINE HCL 10 MG TAB PO SCH ×3 (04:02→20:34)
[2023-04-21 06:55] LABS: Hematocrit 24.9 % (36.0-46.0); Monocytes # (auto) 0.8 10 ^3/uL (0-1.3); Nucleated Red Blood Cells % 0.1 %; White Blood Cell 17.6 10^3/uL (4.4-10.8)
[2023-04-21 06:57] LABS: Basophils # (auto) 0.1 10 ^3/uL (0-0.2); Basophils % (auto) 0.4 % (0.0-2.0); Chloride 102 mmol/L (98-107); Eosinophils # (auto) 0.3 10 ^3/uL (0-0.8); Eosinophils % (auto) 1.5 % (0.0-7.0); Lymphocytes # (auto) 1.2 10 ^3/uL (0.4-5.4); Lymphocytes % (auto) 6.9 % (10.0-50.0); Mean Corpuscular Hemoglobin 28.4 pg (28.0-32.0); Mean Corpuscular Hgb Conc. 32.1 g/dL (32.0-36.0); Mean Corpuscular Volume 88.5 fL (80.0-100.0); Monocytes % (auto) 4.3 % (0.0-12.0); Neutrophils # (auto) 15.3 10 ^3/uL (1.6-8.6); Neutrophils % (auto) 86.9 % (37.0-80.0); Potassium 3.2 mmol/L (3.5-5.1); Red Blood Cells 2.82 10^6/uL (4.0-5.20); Sodium 132 mmol/L (136-145)
[2023-04-21 06:58] LABS: Anion Gap 7 (5-15); Carbon Dioxide 23 mmol/L (20-30)
[2023-04-21 06:59] LABS: Calcium 8.1 mg/dL (8.7-10.4)
[2023-04-21 07:03] LABS: Glucose 75 mg/dL (74-106)
[2023-04-21 07:04] LABS: BUN/Creatinine Ratio 17.6 (10.0-20.0); Blood Urea Nitrogen 13 mg/dL (9-23); Magnesium 1.9 mg/dL (1.6-2.6)
[2023-04-21] MEDS: DOCUSATE SOD 100 MG CAP PO SCH ×2 (10:00→22:00)
[2023-04-21] MEDS: SODIUM CHLOR 0.9% PF (SALINE LOCK) 10ML VIAL/SYR IV SCH ×2 (10:49→22:08)
[2023-04-21] MEDS: METOPROLOL SUCCINATE XL 50 MG TAB PO SCH (10:50)
[2023-04-21] MEDS: AMIODARONE HCL 200 MG TAB PO SCH ×2 (10:50→22:08)
[2023-04-21] MEDS: LOSARTAN POTASSIUM 50 MG TAB PO SCH (10:50)
[2023-04-21] MEDS: FERROUS SULFATE 325mg EC TAB PO SCH ×2 (10:51→22:08)
[2023-04-21] MEDS: PANTOPRAZOLE 40 MG TAB PO SCH (10:51)
[2023-04-21] MEDS: MEROPENEM 2 GM in SODIUM CHL 0.9% 250 ML IV SCH ×2 (10:52→22:09)
[2023-04-21] MEDS ORDERED: POTASSIUM CHL 20 Meq TABLET PO ONE (12:15)
[2023-04-21] MEDS: HYDROcodone-ACET 10/325MG TAB PO PRN (13:05)
[2023-04-21] MEDS ORDERED: FUROSEMIDE 20 MG/2 ML VIAL IV ONE (15:30)
[2023-04-21] MEDS: OXYBUTYNIN CHL 5 MG TAB PO SCH (22:08)
[2023-04-22] VITALS (8 sets, daily range): BP systolic 146–173; BP diastolic 76–94; PULSE 65–79; RESP 17–18; TEMP 97.1–98.7; O2SAT 91–95
[2023-04-22] MEDS: OXYCODONE W/ ACETAMINOPHEN 5/325MG TABLET PO PRN ×3 (01:52→17:58)
[2023-04-22] MEDS: SODIUM CHLORIDE 0.9% 1,000 ML IV SCH ×2 (03:49→13:45)
[2023-04-22] MEDS: CYCLOBENZAPRINE HCL 10 MG TAB PO SCH ×3 (04:12→20:39)
[2023-04-22] MEDS: HYDROcodone-ACET 10/325MG TAB PO PRN ×2 (04:25→20:38)
[2023-04-22 06:58] LABS: Basophils # (auto) 0 10 ^3/uL (0-0.2); Basophils % (auto) 0.2 % (0.0-2.0); Eosinophils # (auto) 0.5 10 ^3/uL (0-0.8); Eosinophils % (auto) 4.6 % (0.0-7.0); Hematocrit 30.6 % (36.0-46.0); Hemoglobin 9.9 g/dL (12.2-16.2); Lymphocytes # (auto) 1.5 10 ^3/uL (0.4-5.4); Lymphocytes % (auto) 12.7 % (10.0-50.0); Mean Corpuscular Hemoglobin 28.3 pg (28.0-32.0); Mean Corpuscular Hgb Conc. 32.4 g/dL (32.0-36.0); Mean Corpuscular Volume 87.5 fL (80.0-100.0); Monocytes # (auto) 0.8 10 ^3/uL (0-1.3); Monocytes % (auto) 6.9 % (0.0-12.0); Neutrophils # (auto) 8.9 10 ^3/uL (1.6-8.6); Neutrophils % (auto) 75.6 % (37.0-80.0); Nucleated Red Blood Cells % 0.2 %; Red Cell Distribution Width 16.9 % (11.8-14.3); White Blood Cell 11.7 10^3/uL (4.4-10.8)
[2023-04-22 07:06] LABS: Calcium 8.5 mg/dL (8.7-10.4); Chloride 102 mmol/L (98-107); Potassium 3.6 mmol/L (3.5-5.1); Sodium 133 mmol/L (136-145)
[2023-04-22 07:07] LABS: Anion Gap 7 (5-15); Carbon Dioxide 24 mmol/L (20-30)
[2023-04-22 07:12] LABS: Blood Urea Nitrogen 15 mg/dL (9-23); Glucose 75 mg/dL (74-106)
[2023-04-22 07:13] LABS: Magnesium 1.9 mg/dL (1.6-2.6)
[2023-04-22] MEDS: FERROUS SULFATE 325mg EC TAB PO SCH ×2 (09:40→22:25)
[2023-04-22] MEDS: DOCUSATE SOD 100 MG CAP PO SCH ×2 (09:41→22:25)
[2023-04-22] MEDS: OXYBUTYNIN CHL 5 MG TAB PO SCH ×2 (09:42→22:26)
[2023-04-22] MEDS: METOPROLOL SUCCINATE XL 50 MG TAB PO SCH (09:43)
[2023-04-22] MEDS: LOSARTAN POTASSIUM 50 MG TAB PO SCH (09:44)
[2023-04-22] MEDS: PANTOPRAZOLE 40 MG TAB PO SCH (09:44)
[2023-04-22] MEDS: AMIODARONE HCL 200 MG TAB PO SCH ×2 (09:45→22:26)
[2023-04-22] MEDS: SODIUM CHLOR 0.9% PF (SALINE LOCK) 10ML VIAL/SYR IV SCH ×2 (09:46→12:33)
[2023-04-22] MEDS: MEROPENEM 2 GM in SODIUM CHL 0.9% 250 ML IV SCH ×2 (09:47→22:25)
[2023-04-22 10:38] LABS: Free T4 (Free Thyroxine) 1.13 ng/dL (0.89-1.76)
[2023-04-22 10:39] LABS: Free T3 1.91 pg/mL (2.3-4.2)
[2023-04-22 22:41] LABS: COVID19 ANTIGEN SOFIA FIA NEGATIVE (NEGATIVE)
== END 2023-04-23 00:25 | DRG 495 ==
LOC: SUR 06:16 → TELE 10:26 → TELE-EAST 16:26
PROVIDERS: ADMIT Orthopaedic Surgery; ATTEND Orthopaedic Surgery
PROC: 0QP004Z Removal of Internal Fixation Device from Lumbar Vertebra, Open Approach (ICD-10-PCS; principal; 2023-04-16 08:22)
PROC: 30233N1 Transfusion of Nonautologous Red Blood Cells into Peripheral Vein, Percutaneous Approach (ICD-10-PCS; 2023-04-20)
PROC: 02HV33Z Insertion of Infusion Device into Superior Vena Cava, Percutaneous Approach (ICD-10-PCS; 2023-04-20)
PROC: B548ZZA Ultrasonography of Superior Vena Cava, Guidance (ICD-10-PCS; 2023-04-20)
DX: T84.84XA Pain due to internal orthopedic prosthetic devices, implants and grafts, initial encounter (principal); G93.41 Metabolic encephalopathy; R78.81 Bacteremia; M48.061 Spinal stenosis, lumbar region without neurogenic claudication; M54.16 Radiculopathy, lumbar region; I48.0 Paroxysmal atrial fibrillation; G62.9 Polyneuropathy, unspecified; Z20.822 Contact with and (suspected) exposure to COVID-19; F41.9 Anxiety disorder, unspecified; Y83.1 Surgical operation with implant of artificial internal device as the cause of abnormal reaction of the patient, or of later complication, without mention of misadventure at the time of the procedure; G89.29 Other chronic pain; I10 Essential (primary) hypertension; R50.82 Postprocedural fever; Z82.49 Family history of ischemic heart disease and other diseases of the circulatory system; Z83.3 Family history of diabetes mellitus; Z98.84 Bariatric surgery status; Y92.89 Other specified places as the place of occurrence of the external cause; B96.5 Pseudomonas (aeruginosa) (mallei) (pseudomallei) as the cause of diseases classified elsewhere
CPT/HCPCS: 36415; 36569; 71045; 72100; 74177; 76000; 80048; 80053; 80162; 82565; 82962; 83605; 83735; 83880; 84439; 84443; 84481; 84484; 85025; 85610; 85652; 85730; 86850; 86900; 86901; 86920; 87040; 87070; 87075; 87077; 87186; 87205; 87426; 93005; 93306; 96379; 97110; 97116; 97163; 97530; G0378; J0690; J2543; J7042

== ENCOUNTER 2023-05-06 16:03 | Inpatient (IN) | payer OTHER, MEDICAID ==
[~2023-05-06] VITALS: Ht 147.3 cm; Wt 56.9 kg
[2023-05-06] MEDS ORDERED: SODIUM CHLORIDE 0.9% 1,000 ML IV ONE ×2 (16:45→22:45)
[2023-05-06] MEDS ORDERED: ONDANSETRON HCL 4 MG/2 ML VIAL IV ONE (16:45)
[2023-05-06] MEDS ORDERED: HYDROmorphone HCL 2 MG/ML VL/or syr IV ONE (16:45)
[2023-05-06 17:06] LABS: Eosinophils # (auto) 0.3 10 ^3/uL (0-0.8); Lymphocytes # (auto) 1.4 10 ^3/uL (0.4-5.4); Monocytes # (auto) 0.9 10 ^3/uL (0-1.3); Neutrophils # (auto) 2.4 10 ^3/uL (1.6-8.6); White Blood Cell 5.1 10^3/uL (4.4-10.8)
[2023-05-06 17:08] LABS: Basophils # (auto) 0 10 ^3/uL (0-0.2); Basophils % (auto) 0.9 % (0.0-2.0); Eosinophils % (auto) 6.1 % (0.0-7.0); Hematocrit 37.8 % (36.0-46.0); Hemoglobin 12.2 g/dL (12.2-16.2); Lymphocytes % (auto) 27.9 % (10.0-50.0); Mean Corpuscular Hemoglobin 28.2 pg (28.0-32.0); Mean Corpuscular Hgb Conc. 32.2 g/dL (32.0-36.0); Mean Corpuscular Volume 87.5 fL (80.0-100.0); Monocytes % (auto) 17.1 % (0.0-12.0); Nucleated Red Blood Cells % 0.1 %; Red Blood Cells 4.33 10^6/uL (4.0-5.20); Red Cell Distribution Width 16.4 % (11.8-14.3)
[2023-05-06 17:20] LABS: INR 1.21 (0.9-1.15); Partial Thromboplastin Time 34.7 SEC (24.5-34.5); Prothrombin Time 12.5 sec (9.3-11.8)
[2023-05-06 17:24] LABS: Albumin 3.5 g/dL (3.2-4.8); Alkaline Phosphatase 94 U/L (46-116); Anion Gap 8 (5-15); Aspartate Aminotransferase 23 U/L (13-40); BUN/Creatinine Ratio 12.5 (10.0-20.0); Blood Urea Nitrogen 9 mg/dL (9-23); Calcium 8.8 mg/dL (8.7-10.4); Carbon Dioxide 27 mmol/L (20-30); Chloride 99 mmol/L (98-107); Glucose 67 mg/dL (74-106); Lipase 25 U/L (12-53); Potassium 3.9 mmol/L (3.5-5.1); Sodium 134 mmol/L (136-145)
[2023-05-06 17:25] LABS: Bilirubin, Total 0.4 mg/dL (0.2-1.0); Total Protein 6.9 g/dL (5.7-8.2)
[2023-05-06 18:10] LABS: Alanine Aminotransferase < 9 U/L (7-40)
[2023-05-06 19:59] LABS: Erythrocyte Sedimentation Rate 29 mm/hr (0-20)
[2023-05-06 22:33] VITALS: PULSE 72; RESP 20; O2SAT 98
[2023-05-06] MEDS ORDERED: ACETAMINOPHEN 325 MG TAB PO PRN (22:45)
[2023-05-06] MEDS ORDERED: ONDANSETRON HCL 4 MG/2 ML VIAL IV PRN (22:45)
[2023-05-06] MEDS ORDERED: VANCOMYCIN PER PHARMACY 0 MG IV SCH (22:45)
[2023-05-06] MEDS ORDERED: IOHEXOL 350 MG/ML 100ML IJ ONE (23:02)
[2023-05-06] MEDS ORDERED: VANCOMYCIN 1GM/200ML 200 ML IV ONE (23:30)
[2023-05-07] MEDS: HYDROcodone-ACET 5/325MG TAB PO PRN (00:24)
[2023-05-07] MEDS ORDERED: IOHEXOL 350 MG/ML 100ML IJ ONE (03:47)
[2023-05-07 03:54] LABS: Urine Bacteria NONE SEEN /hpf (None Seen); Urine Blood Negative /uL (Negative); Urine Clarity Clear (Clear); Urine Color Yellow (Yellow); Urine Hyaline Cast FEW /lpf (0 - 2); Urine Protein, UAD TRACE (Negative); Urine Specific Gravity 1.026 (1.001-1.035); Urine WBC 2 /hpf (0 - 5); Urine pH 7.5 (5.0-8.0)
[2023-05-07] MEDS: hydrALAZINE HCL 10 MG TAB PO PRN ×2 (06:12→12:26)
[2023-05-07] MEDS: PIPERACILLIN-TAZOB 3.375GM 100 ML IV SCH ×3 (08:08→22:00)
[2023-05-07 10:00] VITALS: PULSE 62; RESP 14; O2SAT 94
[2023-05-07] MEDS ORDERED: ENOXAPARIN SOD 40 MG/0.4 ML SYRINGE SC SCH (10:00)
[2023-05-07] MEDS ORDERED: PANTOPRAZOLE 40 MG/10 ML VIAL INJ IV SCH (10:00)
[2023-05-07] MEDS: SODIUM CHLORIDE 0.9% 1,000 ML IV SCH ×2 (10:30)
[2023-05-07 11:46] VITALS: BP 206/97; PULSE 68
[2023-05-07 12:43] VITALS: BP 198/100; PULSE 68; RESP 16; TEMP 98; O2SAT 92
[2023-05-07] MEDS ORDERED: IBUPROFEN 800 MG TAB PO SCH (16:00)
[2023-05-07] MEDS ORDERED: ALPRAZolam 0.25 MG TAB PO PRN (16:00)
[2023-05-07] MEDS ORDERED: amLODIPine BESYLATE 5 MG TAB PO ONE (16:00)
[2023-05-07 17:00] VITALS: BP 177/82; PULSE 65; RESP 18; TEMP 98.6; O2SAT 94
[2023-05-07 20:00] VITALS: PULSE 66
[2023-05-07] MEDS: VANCOMYCIN 750mg/250ml 250 ML IV SCH (20:32)
[2023-05-07 22:00] VITALS: BP 138/68; PULSE 69; RESP 18; TEMP 98.2; O2SAT 96
[2023-05-07] MEDS: FERROUS SULFATE 325mg EC TAB PO SCH (22:00)
[2023-05-08] VITALS (7 sets, daily range): BP systolic 124–145; BP diastolic 61–78; PULSE 64–76; RESP 17–20; TEMP 98.1–98.6; O2SAT 94–98
[2023-05-08] MEDS: PIPERACILLIN-TAZOB 3.375GM 100 ML IV SCH (05:35)
[2023-05-08 08:01] LABS: Red Cell Distribution Width 16.3 % (11.8-14.3); White Blood Cell 4.7 10^3/uL (4.4-10.8)
[2023-05-08 08:03] LABS: Anion Gap 10 (5-15); Carbon Dioxide 27 mmol/L (20-30); Chloride 98 mmol/L (98-107); Potassium 3.3 mmol/L (3.5-5.1); Sodium 135 mmol/L (136-145)
[2023-05-08 08:05] LABS: Calcium 8.9 mg/dL (8.5-10.1)
[2023-05-08 08:08] LABS: Hematocrit 34.9 % (36.0-46.0); Hemoglobin 11.6 g/dL (12.2-16.2); Mean Corpuscular Hemoglobin 28.9 pg (28.0-32.0); Mean Corpuscular Hgb Conc. 33.2 g/dL (32.0-36.0); Red Blood Cells 4.01 10^6/uL (4.0-5.20)
[2023-05-08 08:25] LABS: Basophils % (manual) 0 (0.0-2.0); Blast Cells 0; Metamyelocytes % 0; Myelocytes % 0; Promyelocytes % 0; Reactive Lymphocytes 0
[2023-05-08 08:29] LABS: BUN/Creatinine Ratio 7.5 (10.0-20.0); Blood Urea Nitrogen < 5 mg/dL (9-23)
[2023-05-08 08:31] LABS: Glucose 49 mg/dL (74-106)
[2023-05-08 09:19] LABS: Band Neutrophils % (manual) 1; Eosinophils % (manual) 12 (0-7); Lymphocytes % (manual) 38 (10.0-50.0); Monocytes % (manual) 11 (0-12); Platelet Estimate Increased
[2023-05-08 09:20] LABS: RBC Morphology Normal
[2023-05-08] MEDS: D5W/SOD CHL 0.45%/KCL 20MEQ 1,000 ML IV SCH ×2 (09:58→19:58)
[2023-05-08] MEDS: METOPROLOL SUCCINATE XL 50 MG TAB PO SCH (10:00)
[2023-05-08] MEDS: FERROUS SULFATE 325mg EC TAB PO SCH ×2 (10:00→22:18)
[2023-05-08] MEDS ORDERED: RIVAROXABAN 20 MG TAB PO SCH (10:00)
[2023-05-08] MEDS: CHOLECALCIFEROL (VITD3) 2,000 UNIT CAP/TAB PO SCH (10:01)
[2023-05-08] MEDS: amLODIPine BESYLATE 5 MG TAB PO SCH (10:01)
[2023-05-08] MEDS: PANTOPRAZOLE 40 MG TAB PO SCH (10:02)
[2023-05-08] MEDS: HYDROcodone-ACET 5/325MG TAB PO PRN (10:05)
[2023-05-08] MEDS: MEROPENEM 2 GM in SODIUM CHL 0.9% 250 ML IV SCH ×2 (11:17→22:21)
[2023-05-08] MEDS: VANCOMYCIN 750mg/250ml 250 ML IV SCH (12:36)
[2023-05-08] MEDS: MORPHINE SULFATE INJ 2 MG/ml SYRG IV PRN (18:17)
[2023-05-09] VITALS (8 sets, daily range): BP systolic 130–158; BP diastolic 69–81; PULSE 60–75; RESP 16–20; TEMP 97.9–98.5; O2SAT 94–99
[2023-05-09] MEDS: MORPHINE SULFATE INJ 2 MG/ml SYRG IV PRN (00:38)
[2023-05-09 03:10] LABS: INR 1.26 (0.9-1.15); Partial Thromboplastin Time 31.3 SEC (24.5-34.5)
[2023-05-09] MEDS: VANCOMYCIN 750mg/250ml 250 ML IV SCH (04:13)
[2023-05-09] MEDS ORDERED: fentaNYL CITRATE 100 MCG/2 ML VL IV ONE (09:30)
[2023-05-09] MEDS ORDERED: MIDAZOLAM HCL 2MG/2ML 2ml VIAL (1mg/ml) IV ONE (09:30)
[2023-05-09] MEDS ORDERED: NALOXONE HCL 1MG/ML 2ML SYRINGE ONE (09:39)
[2023-05-09] MEDS ORDERED: LIDOCAINE 2%HCL (LOCAL ANESTH.) INJ 10ml MDV ONE (09:43)
[2023-05-09] MEDS: amLODIPine BESYLATE 5 MG TAB PO SCH (10:37)
[2023-05-09] MEDS: CHOLECALCIFEROL (VITD3) 2,000 UNIT CAP/TAB PO SCH (10:38)
[2023-05-09] MEDS: FERROUS SULFATE 325mg EC TAB PO SCH (10:38)
[2023-05-09] MEDS: METOPROLOL SUCCINATE XL 50 MG TAB PO SCH (10:38)
[2023-05-09] MEDS: PANTOPRAZOLE 40 MG TAB PO SCH (10:38)
[2023-05-09] MEDS: MEROPENEM 2 GM in SODIUM CHL 0.9% 250 ML IV SCH (10:39)
[2023-05-09] MEDS: D5W/SOD CHL 0.45%/KCL 20MEQ 1,000 ML IV SCH (18:05)
[2023-05-09] MEDS: HYDROcodone-ACET 5/325MG TAB PO PRN (18:29)
== END 2023-05-09 20:05 | DRG 561 ==
LOC: ER 16:03 → EDBD 16:03 → TELE 23:27 → TELE-CENTR 05-07 11:36
PROVIDERS: ADMIT Nurse Practitioner Family; ATTEND Nurse Practitioner Family
PROC: 009Y3ZZ Drainage of Lumbar Spinal Cord, Percutaneous Approach (ICD-10-PCS; principal; 2023-05-09)
DX: T84.84XA Pain due to internal orthopedic prosthetic devices, implants and grafts, initial encounter (principal); G89.18 Other acute postprocedural pain; I10 Essential (primary) hypertension; M54.9 Dorsalgia, unspecified; R33.9 Retention of urine, unspecified; I48.91 Unspecified atrial fibrillation; G89.29 Other chronic pain; R19.00 Intra-abdominal and pelvic swelling, mass and lump, unspecified site; B96.5 Pseudomonas (aeruginosa) (mallei) (pseudomallei) as the cause of diseases classified elsewhere; Z83.3 Family history of diabetes mellitus; Z82.49 Family history of ischemic heart disease and other diseases of the circulatory system
CPT/HCPCS: 10005; 36415; 71045; 71250; 74150; 74176; 74177; 76705; 77012; 80048; 80053; 80202; 81001; 83605; 83690; 83735; 84484; 85007; 85025; 85027; 85610; 85652; 85730; 87040; 87081; 87086; 87205; 93005; 96361; 96365; 96375; 96379; 97163; C9113; G0378; J2001; J2250; J2405; J2543

== ENCOUNTER 2023-09-10 14:45 | Inpatient (IN) | payer OTHER, MEDICAID ==
[~2023-09-10] VITALS: Ht 144.8 cm; Wt 60.0 kg
[2023-09-10 15:47] LABS: Basophils # (auto) 0 10 ^3/uL (0-0.2); Basophils % (auto) 0.3 % (0.0-2.0); Eosinophils # (auto) 0.3 10 ^3/uL (0-0.8); Hematocrit 34.8 % (36.0-46.0); Hemoglobin 11.9 g/dL (12.2-16.2); Lymphocytes # (auto) 1.7 10 ^3/uL (0.4-5.4); Lymphocytes % (auto) 19.1 % (10.0-50.0); Mean Corpuscular Hemoglobin 31.6 pg (28.0-32.0); Mean Corpuscular Hgb Conc. 34.3 g/dL (32.0-36.0); Mean Corpuscular Volume 92.1 fL (80.0-100.0); Monocytes # (auto) 1.4 10 ^3/uL (0-1.3); Monocytes % (auto) 15.4 % (0.0-12.0); Neutrophils # (auto) 5.6 10 ^3/uL (1.6-8.6); Neutrophils % (auto) 62.2 % (37.0-80.0); Red Blood Cells 3.78 10^6/uL (4.0-5.20); Red Cell Distribution Width 15.6 % (11.8-14.3)
[2023-09-10 15:49] LABS: Urine Bacteria None Seen /hpf (None Seen)
[2023-09-10 15:55] LABS: Alkaline Phosphatase 75 U/L (46-116); Anion Gap 14 (5-15); Aspartate Aminotransferase 18 U/L (13-40); Bilirubin, Total 0.2 mg/dL (0.2-1.0); Blood Urea Nitrogen 66 mg/dL (9-23); Calcium 9.4 mg/dL (8.7-10.4); Carbon Dioxide 24 mmol/L (20-30); Chloride 102 mmol/L (98-107); Glucose 79 mg/dL (74-106); Potassium 3.9 mmol/L (3.5-5.1); Sodium 140 mmol/L (136-145); Total Protein 7.1 g/dL (5.7-8.2)
[2023-09-10 16:05] LABS: Urine Blood Negative /uL (Negative); Urine Budding Yeast OCCASIONAL /hpf (None Seen); Urine Clarity Clear (Clear); Urine Color Light-Yellow (Yellow); Urine Hyaline Cast FEW /lpf (0 - 2); Urine Protein, UAD Negative (Negative); Urine Specific Gravity 1.011 (1.001-1.035); Urine Urobilinogen Normal (Negative); Urine WBC 4 /hpf (0 - 5)
[2023-09-10 16:17] LABS: Alanine Aminotransferase < 9 U/L (7-40)
[2023-09-10] MEDS ORDERED: ACETAMINOPHEN 325 MG TAB PO PRN (17:00)
[2023-09-10] MEDS ORDERED: DOCUSATE SOD 100 MG CAP PO PRN (17:00)
[2023-09-10] MEDS ORDERED: ALPRAZolam 0.25 MG TAB PO PRN (17:00)
[2023-09-10] MEDS ORDERED: MORPHINE SULFATE INJ 2 MG/ml SYRG IV PRN (17:00)
[2023-09-10] MEDS ORDERED: NITROGLYCERIN 0.4 MG SL TAB SL PRN (17:00)
[2023-09-10] MEDS: SODIUM CHLORIDE 0.9% 1,000 ML IV SCH (18:48)
[2023-09-10 22:00] VITALS: PULSE 77; RESP 16; O2SAT 96
[2023-09-10] MEDS: MORPHINE SULFATE INJ 2 MG/ml SYRG IV PRN (22:05)
[2023-09-10] MEDS: FERROUS SULFATE 325mg EC TAB PO SCH (22:05)
[2023-09-10] MEDS: APIXABAN 2.5 MG TAB PO SCH (22:05)
[2023-09-11] MEDS: HYDROcodone-ACET 5/325MG TAB PO PRN (06:11)
[2023-09-11 06:38] LABS: Albumin 3.5 g/dL (3.2-4.8); Alkaline Phosphatase 63 U/L (46-116); Anion Gap 13 (5-15); Aspartate Aminotransferase 17 U/L (13-40); BUN/Creatinine Ratio 14.2 (10.0-20.0); Blood Urea Nitrogen 66 mg/dL (9-23); Calcium 8.8 mg/dL (8.5-10.1); Carbon Dioxide 23 mmol/L (20-30); Chloride 106 mmol/L (98-107); Glucose 72 mg/dL (74-106); Potassium 3.5 mmol/L (3.5-5.1); Sodium 142 mmol/L (136-145)
[2023-09-11 06:39] LABS: Bilirubin, Total 0.2 mg/dL (0.2-1.0); Total Protein 6.2 g/dL (5.7-8.2)
[2023-09-11 06:41] LABS: Alanine Aminotransferase < 9 U/L (7-40)
[2023-09-11 06:54] LABS: Hemoglobin 10.6 g/dL (12.2-16.2); Mean Corpuscular Hgb Conc. 33.2 g/dL (32.0-36.0); Mean Corpuscular Volume 93.4 fL (80.0-100.0); Red Blood Cells 3.43 10^6/uL (4.0-5.20); White Blood Cell 8.8 10^3/uL (4.4-10.8)
[2023-09-11 07:10] LABS: Band Neutrophils % (manual) 0; Basophils % (manual) 0 (0.0-2.0); Blast Cells 0; Metamyelocytes % 0; Myelocytes % 0; Promyelocytes % 0; Reactive Lymphocytes 0
[2023-09-11 08:12] VITALS: PULSE 71; RESP 19; O2SAT 92
[2023-09-11 08:31] LABS: Eosinophils % (manual) 7 (0-7); Lymphocytes % (manual) 18 (10.0-50.0); Monocytes % (manual) 13 (0-12)
[2023-09-11 08:32] LABS: Platelet Estimate Adequate
[2023-09-11] MEDS: CALCIUM CARBONATE CHOLECALCIFE PO SCH (10:00)
[2023-09-11] MEDS: [UNRECOGNIZED DRUG - OTHER] PO SCH (10:00)
[2023-09-11] MEDS: amLODIPine BESYLATE 5 MG TAB PO SCH (10:08)
[2023-09-11] MEDS: ONDANSETRON HCL 4 MG/2 ML VIAL IV PRN (10:08)
[2023-09-11] MEDS: PANTOPRAZOLE 40 MG TAB PO SCH (10:08)
[2023-09-11] MEDS: METOPROLOL SUCCINATE XL 50 MG TAB PO SCH (10:09)
[2023-09-11] MEDS: CHOLECALCIFEROL (VITD3) 1,000UNIT=25mCg TAB PO SCH (10:09)
[2023-09-11] MEDS: SOD CHL 0.45% 1,000 ML IV SCH (11:13)
[2023-09-11 17:00] VITALS: BP 127/66; PULSE 66; RESP 18; TEMP 98; O2SAT 99
[2023-09-11] MEDS: LACTATED RINGER'S 1,000 ML IV SCH (19:00)
[2023-09-11] MEDS: HYDROcodone-ACET 10/325MG TAB PO PRN (19:49)
[2023-09-11 20:00] VITALS: BP 129/65; PULSE 64; PULSE 66; RESP 20; TEMP 97.8; O2SAT 98
[2023-09-11 21:00] VITALS: BP 129/65; PULSE 66; RESP 20; TEMP 97.6; O2SAT 97
[2023-09-12] VITALS (8 sets, daily range): BP systolic 113–129; BP diastolic 61–70; PULSE 58–73; RESP 18–63; TEMP 97.7–98.3; O2SAT 94–100
[2023-09-12 11:06] LABS: Chloride 105 mmol/L (98-107); Potassium 3.7 mmol/L (3.5-5.1); Sodium 141 mmol/L (136-145)
[2023-09-12 11:07] LABS: Anion Gap 8 (5-15); Carbon Dioxide 28 mmol/L (20-30)
[2023-09-12 11:08] LABS: Calcium 9.3 mg/dL (8.5-10.1)
[2023-09-12 11:13] LABS: BUN/Creatinine Ratio 17.8 (10.0-20.0); Blood Urea Nitrogen 61 mg/dL (9-23); Glucose 74 mg/dL (74-106)
[2023-09-13 01:02] VITALS: BP 132/74; PULSE 65; RESP 18; TEMP 97.6; O2SAT 92
[2023-09-13 05:00] VITALS: BP 120/56; PULSE 65; RESP 18; TEMP 97.8; O2SAT 90
[2023-09-13 06:31] LABS: Anion Gap 12 (5-15); Carbon Dioxide 23 mmol/L (20-30); Chloride 105 mmol/L (98-107); Potassium 3.1 mmol/L (3.5-5.1); Sodium 140 mmol/L (136-145)
[2023-09-13 06:33] LABS: Calcium 9.8 mg/dL (8.7-10.4)
[2023-09-13 06:37] LABS: BUN/Creatinine Ratio 16.4 (10.0-20.0); Glucose 70 mg/dL (74-106)
[2023-09-13 06:38] LABS: Blood Urea Nitrogen 42 mg/dL (9-23)
[2023-09-13 07:39] VITALS: PULSE 65; RESP 16; O2SAT 98
[2023-09-13 08:00] VITALS: BP 124/65; PULSE 62; PULSE 68; RESP 18; TEMP 98; O2SAT 95
[2023-09-13] MEDS ORDERED: APIX2.5T PO (11:07)
[2023-09-13 12:00] VITALS: BP 110/56; PULSE 62; RESP 16; TEMP 97.9; O2SAT 93
[2023-09-13 14:18] VITALS: BP 124/65; PULSE 68; TEMP 36.6
[2023-09-13] MEDS ORDERED: HYDR-4798 PO (14:36)
== END 2023-09-13 15:30 | disposition home or self-care (01) | DRG 699 ==
LOC: ER 14:45 → TELE 16:50 → TELE-WESTW 09-11 15:32
PROVIDERS: ADMIT Internal Medicine; ATTEND Internal Medicine
DX: N14.0 Analgesic nephropathy (principal); I48.20 Chronic atrial fibrillation, unspecified; M86.8X8 Other osteomyelitis, other site; N17.0 Acute kidney failure with tubular necrosis; I50.9 Heart failure, unspecified; I11.0 Hypertensive heart disease with heart failure; F41.9 Anxiety disorder, unspecified; B96.5 Pseudomonas (aeruginosa) (mallei) (pseudomallei) as the cause of diseases classified elsewhere; T39.395A Adverse effect of other nonsteroidal anti-inflammatory drugs [NSAID], initial encounter; G89.29 Other chronic pain; Z90.710 Acquired absence of both cervix and uterus; Z90.49 Acquired absence of other specified parts of digestive tract; Z87.891 Personal history of nicotine dependence; Z79.01 Long term (current) use of anticoagulants; Z83.3 Family history of diabetes mellitus; Z82.49 Family history of ischemic heart disease and other diseases of the circulatory system
CPT/HCPCS: 36415; 76775; 80048; 80053; 81001; 85007; 85025; 85027; 97163; G0378; J2405

== ENCOUNTER 2024-01-28 16:23 | Inpatient (IN) | payer OTHER, MEDICAID ==
[~2024-01-28] VITALS: Ht 147.3 cm; Wt 60.0 kg
[~2024-01-28 16:23] MED LIST changes: +APIX2.5T PO; -BENA-26 PO; +HYDR-4798 PO; -IBUP-1455 PO; -RIVA20TA PO
[2024-01-28 16:55] VITALS: PULSE 61; RESP 16; O2SAT 94
[2024-01-28] MEDS ORDERED: NITROGLYCERIN 0.4 MG SL TAB SL PRN (17:00)
[2024-01-28] MEDS: NITROGLYCERIN 50MG/250ML 250 ML IV ONE (17:28)
[2024-01-28] MEDS: SODIUM CHLORIDE 0.9% 1,000 ML IV ONE (17:31)
[2024-01-28] MEDS: HEPARIN SODIUM (PORCINE) 5000 UNITS/ML 1ML VIAL IV ONE (17:46)
[2024-01-28] MEDS: HEPARIN DRIP/D5W 100UNITS/ML 250 ML IV SCH (17:47)
[2024-01-28] MEDS: SODIUM CHLORIDE 0.9% 1,000 ML IV SCH (17:48)
[2024-01-28 18:09] LABS: Basophils # (auto) 0 10 ^3/uL (0-0.2); Basophils % (auto) 0.4 % (0.0-2.0); Eosinophils # (auto) 0.1 10 ^3/uL (0-0.8); Eosinophils % (auto) 1.4 % (0.0-7.0); Hematocrit 37.9 % (36.0-46.0); Hemoglobin 12.9 g/dL (12.2-16.2); Lymphocytes # (auto) 2.2 10 ^3/uL (0.4-5.4); Lymphocytes % (auto) 39.4 % (10.0-50.0); Mean Corpuscular Hemoglobin 32.9 pg (28.0-32.0); Mean Corpuscular Volume 96.6 fL (80.0-100.0); Monocytes # (auto) 0.7 10 ^3/uL (0-1.3); Monocytes % (auto) 12.9 % (0.0-12.0); Neutrophils # (auto) 2.6 10 ^3/uL (1.6-8.6); Neutrophils % (auto) 45.9 % (37.0-80.0); Nucleated Red Blood Cells % 0.1 %; Platelet Count (auto) 264 10^3/uL (140-450); Red Blood Cells 3.93 10^6/uL (4.0-5.20); Red Cell Distribution Width 14.4 % (11.8-14.3); White Blood Cell 5.6 10^3/uL (4.4-10.8)
[2024-01-28 18:25] LABS: Alanine Aminotransferase 10 U/L (7-40); Albumin 3.8 g/dL (3.2-4.8); Alkaline Phosphatase 64 U/L (46-116); Anion Gap 5 (5-15); Aspartate Aminotransferase 18 U/L (13-40); BUN/Creatinine Ratio 21.3 (10.0-20.0); Bilirubin, Total 0.5 mg/dL (0.2-1.0); Blood Urea Nitrogen 20 mg/dL (9-23); Calcium 9.4 mg/dL (8.7-10.4); Carbon Dioxide 27 mmol/L (20-30); Chloride 103 mmol/L (98-107); Glucose 86 mg/dL (74-106); Sodium 135 mmol/L (136-145); Total Protein 6.2 g/dL (5.7-8.2)
[2024-01-28 18:42] LABS: INR 1.06 (0.9-1.15); Partial Thromboplastin Time 26.8 SEC (24.5-34.5); Prothrombin Time 11.2 sec (9.3-11.8)
[2024-01-28 19:45] VITALS: PULSE 58; RESP 19; O2SAT 95
[2024-01-28] MEDS: ACETAMINOPHEN 325 MG TAB PO PRN (20:28)
[2024-01-28 22:00] LABS: Urine Bacteria None Seen /hpf (None Seen)
[2024-01-28 22:10] LABS: Urine Blood Negative /uL (Negative); Urine Clarity Clear (Clear); Urine Color Light-Yellow (Yellow); Urine Protein, UAD Negative (Negative); Urine Specific Gravity 1.012 (1.001-1.035); Urine Urobilinogen Normal (Negative); Urine WBC 1 /hpf (0 - 5); Urine pH 7.5 (5.0-9.0)
[2024-01-29] VITALS (11 sets, daily range): BP systolic 119–140; BP diastolic 60–72; PULSE 59–84; RESP 16–26; TEMP 97.8–98; O2SAT 95–99
[2024-01-29 00:39] LABS: INR 1.1 (0.9-1.15); Prothrombin Time 11.6 sec (9.3-11.8)
[2024-01-29] MEDS: HEPARIN DRIP/D5W 100UNITS/ML 250 ML IV SCH ×2 (01:03→08:45)
[2024-01-29] MEDS: HEPARIN SODIUM (PORCINE) 5000 UNITS/ML 1ML VIAL IV ONE (01:03)
[2024-01-29 07:46] LABS: INR 1.09 (0.9-1.15); Prothrombin Time 11.5 sec (9.3-11.8)
[2024-01-29 08:58] LABS: Basophils # (auto) 0 10 ^3/uL (0-0.2); Basophils % (auto) 0.6 % (0.0-2.0); Eosinophils # (auto) 0.1 10 ^3/uL (0-0.8); Eosinophils % (auto) 2.1 % (0.0-7.0); Hematocrit 38.4 % (36.0-46.0); Hemoglobin 13.3 g/dL (12.2-16.2); Lymphocytes # (auto) 2.2 10 ^3/uL (0.4-5.4); Lymphocytes % (auto) 35.4 % (10.0-50.0); Mean Corpuscular Hemoglobin 33.5 pg (28.0-32.0); Mean Corpuscular Hgb Conc. 34.6 g/dL (32.0-36.0); Mean Corpuscular Volume 96.9 fL (80.0-100.0); Monocytes # (auto) 0.7 10 ^3/uL (0-1.3); Monocytes % (auto) 11.4 % (0.0-12.0); Neutrophils # (auto) 3.2 10 ^3/uL (1.6-8.6); Neutrophils % (auto) 50.5 % (37.0-80.0); Nucleated Red Blood Cells % 0.1 %; Platelet Count (auto) 246 10^3/uL (140-450); Red Blood Cells 3.96 10^6/uL (4.0-5.20); Red Cell Distribution Width 14.2 % (11.8-14.3); White Blood Cell 6.4 10^3/uL (4.4-10.8)
[2024-01-29] MEDS: ONDANSETRON HCL 4 MG/2 ML VIAL IV PRN (10:30)
[2024-01-29] MEDS: MORPHINE SULFATE INJ 2 MG/ml SYRG IV PRN ×2 (11:52→19:01)
[2024-01-29 12:27] LABS: Urine Bacteria None Seen /hpf (None Seen)
[2024-01-29] MEDS: HEPARIN IN NS 1000Units/500mL 1,500 ML ONE (12:47)
[2024-01-29] MEDS: IODIXANOL 320MG/ML 100ML BTL IV ONE (12:47)
[2024-01-29 12:55] LABS: Urine Blood Negative /uL (Negative); Urine Clarity Clear (Clear); Urine Color Light-Yellow (Yellow); Urine Protein, UAD Negative (Negative); Urine Specific Gravity 1.018 (1.001-1.035); Urine Urobilinogen 2 mg/dL (Negative); Urine WBC <1 /hpf (0 - 5)
[2024-01-29] MEDS: HEPARIN SODIUM (PORCINE) 5000 UNITS/ML 1ML VIAL ONE (12:55)
[2024-01-29] MEDS: ANGIOMAX 250 MG VIAL IV ONE (12:55)
[2024-01-29] MEDS: fentaNYL CITRATE 100 MCG/2 ML VL ONE (12:55)
[2024-01-29] MEDS: LIDOCAINE 2%HCL (LOCAL ANESTH.) INJ 20ML MDV ONE (12:56)
[2024-01-29] MEDS: MIDAZOLAM HCL 2MG/2ML 2ml VIAL (1mg/ml) ONE (12:56)
[2024-01-29] MEDS: VERAPAMIL 2.5MG/ML INJ 2ML VIAL IV ONE (13:09)
[2024-01-29] MEDS: NITROGLYCERIN 50MG/250ML 250 ML IV ONE (13:09)
[2024-01-29] MEDS: hydrALAZINE HCL 20 MG/ML VL ONE (13:19)
[2024-01-29 17:59] LABS: INR 1.07 (0.9-1.15); Partial Thromboplastin Time 62.6 SEC (24.5-34.5); Prothrombin Time 11.3 sec (9.3-11.8)
[2024-01-30] MEDS ORDERED: MELATONIN 5 MG TAB PO PRN (00:45)
[2024-01-30 01:00] VITALS: BP 141/65; PULSE 60; RESP 16; TEMP 98.2; O2SAT 94
[2024-01-30] MEDS: diphenhdrAMINE HCL 50 MG/1 ML VL IV ONE (01:16)
[2024-01-30 04:43] VITALS: BP 156/63; PULSE 66; RESP 16; TEMP 98.6; O2SAT 93
[2024-01-30 08:00] VITALS: PULSE 76
[2024-01-30 09:00] VITALS: BP 166/61; PULSE 74; RESP 18; TEMP 98.4; O2SAT 90
[2024-01-30] MEDS: RANOLAZINE ER 500 MG TAB PO SCH (09:10)
[2024-01-30] MEDS: LOSARTAN POTASSIUM 50 MG TAB PO SCH (09:11)
[2024-01-30] MEDS: METOPROLOL SUCCINATE XL 50 MG TAB PO SCH (09:11)
[2024-01-30] MEDS: amLODIPine BESYLATE 5 MG TAB PO SCH (09:11)
[2024-01-30 13:00] VITALS: BP 132/75; PULSE 97; RESP 16; TEMP 98.9; O2SAT 91
[2024-01-30] MEDS ORDERED: ALPR0.254 PO (13:40)
[2024-01-30] MEDS ORDERED: APIX2.5T PO (13:40)
[2024-01-30] MEDS ORDERED: MELATONIN 5 MG TAB PO SCH (22:00)
== END 2024-01-30 17:14 | disposition home or self-care (01) | DRG 286 ==
LOC: EDUNIT# 16:23 → EDBD 16:23 → ER 16:23 → OVERFLOW 16:55 → TELE-EAST 01-29 15:39
PROVIDERS: ADMIT Internal Medicine; ATTEND Internal Medicine
PROC: 4A023N7 Measurement of Cardiac Sampling and Pressure, Left Heart, Percutaneous Approach (ICD-10-PCS; principal; 2024-01-29)
PROC: B211YZZ Fluoroscopy of Multiple Coronary Arteries using Other Contrast (ICD-10-PCS; 2024-01-29)
PROC: B215YZZ Fluoroscopy of Left Heart using Other Contrast (ICD-10-PCS; 2024-01-29)
DX: I25.110 Atherosclerotic heart disease of native coronary artery with unstable angina pectoris (principal); J96.20 Acute and chronic respiratory failure, unspecified whether with hypoxia or hypercapnia; F41.9 Anxiety disorder, unspecified; J44.9 Chronic obstructive pulmonary disease, unspecified; I10 Essential (primary) hypertension; I48.0 Paroxysmal atrial fibrillation; Z79.891 Long term (current) use of opiate analgesic; Z79.899 Other long term (current) drug therapy; Z90.81 Acquired absence of spleen; Z90.710 Acquired absence of both cervix and uterus; Z79.01 Long term (current) use of anticoagulants; Z90.49 Acquired absence of other specified parts of digestive tract; E78.5 Hyperlipidemia, unspecified
CPT/HCPCS: 36415; 71045; 80053; 81001; 84484; 85025; 85610; 85730; 87086; 93005; 93458; 99152; 99291; G0378; J2250; J2405; Q9967